=== PATIENT | female | born 1965 | race Caucasian/White ===

== ENCOUNTER 2021-05-18 17:24 | Emergency (ER) | payer OTHER ==
[~2021-05-18 17:24] MED LIST: SINGULAIR10 MG PO; ZITHROMAX250 MG PO
[2021-05-18 18:46] LABS: HEMOGLOBIN 14.2 gm/dl (12.3-15.3); RED BLOOD COUNT 4.78 M/UL (4.00-5.10); WHITE BLOOD COUNT 11.2 K/UL (4.5-11.0)
[2021-05-18 19:03] LABS: BUN/CREATININE RATIO 16 (0-10)
[2021-05-18] MEDS ORDERED: HYDROCODON-ACE1 EAC4 PO (20:10)
[2021-05-18] MEDS ORDERED: IBUPROFEN600 MG PO (20:10)
[2021-05-18] MEDS ORDERED: ZOFRAN ODT 4 MG4 MG SL (20:10)
== END 2021-05-18 21:00 | disposition home or self-care (01) ==
LOC: ER1 17:24
PROVIDERS: Emergency Medicine
DX: S52.532A Colles' fracture of left radius, initial encounter for closed fracture (principal); F17.200 Nicotine dependence, unspecified, uncomplicated; W18.30XA Fall on same level, unspecified, initial encounter; Y92.89 Other specified places as the place of occurrence of the external cause; Y99.0 Civilian activity done for income or pay
CPT/HCPCS: 25660; 71045; 73100; 80053; 83735; 85025; 93005; 96374; 96375; 99152; 99284; J2270; J2405; J2704